=== PATIENT | female | born 1940 | race Caucasian/White ===

== ENCOUNTER 2018-04-06 20:44 | Emergency (ER) | payer OTHER ==
[~2018-04-06] VITALS: Ht 165.1 cm; Wt 103.5 kg
[2018-04-06 21:37] LABS: HEMATOCRIT 34.3 % (36.0-46.0); HEMOGLOBIN 11.6 G/DL (11.9-15.5); MCH 30.5 PG (29.0-34.0); MCHC 33.8 G/DL (30.0-36.0); MCV 90.3 FL (83-99); PLATELET COUNT 175 K/uL (156-360); RBC DIS.WIDTH-CV 13.6 % (11.8-14.6); RBC DIS.WIDTH-SD 45.4 % (39-53); WHITE BLOOD COUNT 15.9 K/uL (4.1-10.2)
[2018-04-06 21:46] LABS: APPEARANCE CLOUDY ((CLEAR)); BILIRUBIN NEGATIVE; BLOOD MODERATE; COLOR YELLOW ((YELLOW)); GLUCOSE (STRIP) NEGATIVE; KETONES NEGATIVE; LEUKOCYTES LARGE; NITRITE NEGATIVE; PROTEIN (STRIP) 30; SPECIFIC GRAVITY 1.016 (1.000-1.030); UROBILINOGEN 0.2 MG/DL (0.2-1.0)
[2018-04-06 21:51] LABS: CHLORIDE 109 mEq/L (99-109); POTASSIUM 4.7 mEq/L (3.7-5.4); SODIUM 139 mEq/L (136-147)
[2018-04-06 21:53] LABS: GLUCOSE 110 mg/dL (70-99)
[2018-04-06 21:57] LABS: CREATININE 1.4 mg/dL (0.6-1.3); GFR ESTIMATE (CALCULATED) 39 mL/min/
[2018-04-06 21:58] LABS: UREA NITROGEN (BUN) 23 mg/dL (9-23)
[2018-04-06] MEDS ORDERED: BACTRIM,SEPT1 TABLET PO (22:15)
[2018-04-06 22:24] LABS: BACTERIA 3+ /HPF; EPITHELIAL CELLS 2+ /HPF; MUCUS TRACE /LPF; RED BLOOD CELLS TNTC /HPF (0-5); UCUL ADDED? YES; WHITE BLOOD CELLS TNTC /HPF (0-5)
[2018-04-06 22:25] LABS: AMORPHOUS URATES CRYSTALS 1+; HYALINE CASTS RARE /LPF
[2018-04-06 23:01] VITALS: BP 129/67
== END 2018-04-06 23:20 | disposition home or self-care (01) ==
LOC: EME → EDBD 20:44 → EME 23:20
PROVIDERS: Emergency Medicine
DX: N39.0 Urinary tract infection, site not specified (principal); R41.0 Disorientation, unspecified; R11.2 Nausea with vomiting, unspecified; I12.9 Hypertensive chronic kidney disease with stage 1 through stage 4 chronic kidney disease, or unspecified chronic kidney disease; N18.9 Chronic kidney disease, unspecified; Z87.440 Personal history of urinary (tract) infections; Z90.49 Acquired absence of other specified parts of digestive tract; Z87.891 Personal history of nicotine dependence
CPT/HCPCS: 80048; 81003; 85027; 87086 GA; 99281; 99284